=== PATIENT | male | born 1980 | race Caucasian/White ===

== ENCOUNTER 2023-10-20 12:28 | Inpatient (IN) | payer OTHER ==
[2023-10-20 14:32] VITALS: BMI 28.8
[2023-10-20] MEDS ORDERED: BENZOCAINE/MENTHOL (CHLORASEPTIC ) LOZENGE MM PRN (15:11)
[2023-10-20] MEDS ORDERED: BUPRENORPHINE HCL 150 MCG, BUPRENORPHINE HCL 75 MCG BC PRN (15:11)
[2023-10-20] MEDS ORDERED: NALOXONE HCL (KLOXXADO) 8 MG SPRAY NS PRN (15:11)
[2023-10-20] MEDS ORDERED: ONDANSETRON *ODT* 4 MG TABLET SL PRN (15:11)
[2023-10-20] MEDS ORDERED: LOPERAMIDE HCL 2 MG CAPSULE PO PRN (15:11)
[2023-10-20] MEDS ORDERED: ACETAMINOPHEN 325 MG TABLET (FP) PO PRN (15:11)
[2023-10-20] MEDS ORDERED: BENZONATATE 200 MG CAPSULE PO PRN (15:11)
[2023-10-20] MEDS ORDERED: DICYCLOMINE HCL 10 MG CAPSULE PO PRN (15:11)
[2023-10-20] MEDS ORDERED: MAG HYDROX/AL HYDROX/SIMETH 30 ML UNIT-DOSE CUP PO PRN (15:11)
[2023-10-20] MEDS ORDERED: IBUPROFEN 400 MG TABLET (FP) PO PRN (15:11)
[2023-10-20] MEDS ORDERED: POLYETHYLENE GLYCOL (HEALTHYLAX) 3350 17 GM PACKET PO PRN (15:11)
[2023-10-20] MEDS ORDERED: NALOXONE HCL 0.4 MG/ML VIAL IM PRN (15:11)
[2023-10-20] MEDS ORDERED: BISMUTH SUBSALICYLATE 524 MG/30 ML PO PRN (15:11)
[2023-10-20] MEDS ORDERED: MAGNESIUM HYDROX 2400MG/30ML ORAL SUSPENSION 30 ML CUP PO PRN (15:11)
[2023-10-20] MEDS ORDERED: IBUPROFEN 600 MG TABLET (FP) PO PRN (15:11)
[2023-10-20] MEDS ORDERED: PRENATAL VITAMINS W/ FOLIC ACID TABLET (FP) PO ONE (16:10)
[2023-10-20] MEDS ORDERED: NICOTINE 14 MG/24 HOURS TOPICAL PATCH TD ONE (16:10)
[2023-10-20] MEDS ORDERED: cloNIDine HCL 0.1 MG TABLET ONE (16:10)
[2023-10-20] MEDS ORDERED: methaDONE HCL 10 MG TABLET (FOR DETOX USE ONLY) ONE (16:10)
[2023-10-20] MEDS: DOXYCYCLINE HYCLATE 100 MG TABLET PO ONE (16:16)
[2023-10-20] MEDS: NICOTINE 14 MG/24 HOURS TOPICAL PATCH TD SCH (16:16)
[2023-10-20] MEDS: methaDONE HCL 10 MG TABLET (FOR DETOX USE ONLY) PO ONE (16:16)
[2023-10-20] MEDS: PRENATAL VITAMINS W/ FOLIC ACID TABLET (FP) PO SCH (16:16)
[2023-10-20] MEDS: AMOXICILLIN 500 MG CAPSULE (FP) PO ONE (16:17)
[2023-10-20] MEDS: DOXYCYCLINE HYCLATE 100 MG CAPSULE PO ONE (16:18)
[2023-10-20] MEDS ORDERED: cloNIDine HCL 0.1 MG TABLET PO SCH (18:00)
[2023-10-20] MEDS: BACITRACIN ZINC 15 GM TUBE TOPICAL OINTMENT TP SCH (18:52)
[2023-10-20] MEDS: BUPRENORPHINE HCL 150 MCG, BUPRENORPHINE HCL 75 MCG BC ONE (18:53)
[2023-10-20] MEDS: cloNIDine HCL 0.1 MG TABLET PO ONE (18:53)
[2023-10-20] MEDS ORDERED: cloNIDine HCL 0.1 MG TABLET PO PRN (19:11)
[2023-10-20] MEDS: MELATONIN 5 MG TABLETS PO SCH (22:31)
[2023-10-20] MEDS: THIAMINE HCL 100 MG TABLET (FP) PO SCH (22:31)
[2023-10-20] MEDS: hydrOXYzine PAMOATE 25 MG CAPSULE (FP) PO PRN (22:31)
[2023-10-20] MEDS: diazePAM 5 MG TABLET PO PRN (22:31)
[2023-10-20] MEDS ORDERED: P-EPHED 60MG/TRIPROLIDI 2.5MG TABLET PO PRN (22:36)
[2023-10-20] MEDS: BUPRENORPHINE/NALOXONE 0.5 MG/0.125 MG FILM SL ONE (22:36)
[2023-10-21] MEDS ORDERED: BUPRENORPHINE HCL 150 MCG, BUPRENORPHINE HCL 75 MCG BC PRN
[2023-10-21] MEDS: METHOCARBAMOL 500 MG TABLET PO PRN (05:44)
[2023-10-21] MEDS: guaiFENesin 600 MG TABLET.ER (FP) PO PRN (05:44)
[2023-10-21] MEDS ORDERED: BUPRENORPHINE HCL 150 MCG, BUPRENORPHINE HCL 75 MCG BC SCH (06:00)
[2023-10-21] MEDS: BUPRENORPHINE/NALOXONE 0.5 MG/0.125 MG FILM SL SCH (09:22)
[2023-10-21 12:12] LABS: HEMATOCRIT 39.3 % (35.4-49); HEMOGLOBIN 12.2 GM/dL (11.7-16.9); MCH 24.5 pg (25.7-33.7); MCHC 31.1 g/dl (32.0-35.9); MEAN CELL VOLUME 78.9 fl (80-96); MEAN PLT VOLUME 7.5 fl (7.5-11.1); PLATELET COUNT 357 10^3/uL (134-434); RBC 4.98 M/mm3 (4.00-5.60); RDW 18.9 % (11.9-15.9); WHITE BLOOD COUNT 10.8 K/mm3 (4.0-10.0)
[2023-10-21 12:16] LABS: CHLORIDE 105 mmol/L (98-107); POTASSIUM 4.7 mmol/L (3.5-5.1); SODIUM 138 mmol/L (136-145)
[2023-10-21 12:27] LABS: CALCIUM 9.4 mg/dL (8.5-10.1)
[2023-10-21 12:28] LABS: ALBUMIN 3.7 g/dl (3.4-5.0); ANION GAP 6 mmol/L (4-13); BLOOD UREA NITROGEN 8.9 mg/dL (7-18); CO2 28 mmol/L (21-32); GLUCOSE,RANDOM 94 mg/dL (74-106)
[2023-10-21 12:31] LABS: BILIRUBIN,TOTAL 0.7 mg/dL (0.2-1); TOT PROT 7.2 g/dl (6.4-8.2)
[2023-10-21 12:32] LABS: ALK PHOS 96 U/L (45-117); SGOT/AST 15 U/L (15-37)
[2023-10-21 12:33] LABS: SGPT/ALT 24 U/L (13-61)
[2023-10-21 12:34] LABS: CREATININE 0.9 mg/dL (0.55-1.3)
[2023-10-21] MEDS: cloNIDine HCL 0.1 MG TABLET PO PRN (14:00)
[2023-10-22] MEDS ORDERED: BUPRENORPHINE HCL 450 MCG FILM BC SCH (06:00)
[2023-10-22] MEDS: methaDONE HCL 10 MG TABLET (FOR DETOX USE ONLY) PO ONE (09:31)
[2023-10-22] MEDS ORDERED: BUPRENORPHINE/NALOXONE 2 MG/0.5 MG FILM PACKET SL SCH (10:00)
[2023-10-22] MEDS: amLODIPine BESYLATE 10 MG TABLET (FP) PO SCH (11:40)
[2023-10-22] MEDS: diazePAM 5 MG TABLET PO PRN (22:15)
[2023-10-23] MEDS ORDERED: BUPRENORPHINE/NALOXONE 4 MG/1 MG FILM PACKET SL SCH ×2 (06:00→10:00)
[2023-10-23] MEDS: LOSARTAN POTASSIUM 25 MG TABLET PO ONE (20:52)
[2023-10-24] MEDS ORDERED: BUPRENORPHINE/NALOXONE 8 MG/2 MG FILM PACKET SL ONE (06:00)
[2023-10-24] MEDS ORDERED: BUPRENORPHINE/NALOXONE 8 MG/2 MG FILM PACKET SL SCH (10:00)
[2023-10-24] MEDS: methaDONE HCL 10 MG TABLET (FOR DETOX USE ONLY) PO ONE (10:15)
[2023-10-25] MEDS ORDERED: BUPRENORPHINE/NALOXONE 8 MG/2 MG FILM PACKET SL ONE (10:00)
[2023-10-25] MEDS: LOSARTAN POTASSIUM 50 MG TABLET PO SCH (13:49)
[2023-10-25 16:49] VITALS: BP 143/90; PULSE 98; RESP 18; TEMP 98.9
== END 2023-10-25 17:19 | disposition other institution (70) | DRG 773 ==
LOC: YASAS 12:28 → Y3N 16:20
PROVIDERS: ADMIT Allergy & Immunology; ATTEND Surgery
PROC: HZ2ZZZZ Detoxification Services for Substance Abuse Treatment (ICD-10-PCS; principal; 2023-10-20)
DX: F11.23 Opioid dependence with withdrawal (principal); F17.290 Nicotine dependence, other tobacco product, uncomplicated; F19.24 Other psychoactive substance dependence with psychoactive substance-induced mood disorder; I10 Essential (primary) hypertension; L30.8 Other specified dermatitis; Z86.59 Personal history of other mental and behavioral disorders
CPT/HCPCS: 36415; 80053; 80305; 80307; 85027; 86780; 87635; 93005; 93010

== ENCOUNTER 2023-10-25 17:44 | Inpatient (IN) | payer OTHER ==
[2023-10-25] MEDS ORDERED: LOPERAMIDE HCL 2 MG CAPSULE PO PRN (20:28)
[2023-10-25] MEDS ORDERED: ACETAMINOPHEN 325 MG TABLET (FP) PO PRN (20:28)
[2023-10-25] MEDS ORDERED: NALOXONE (NYS OPIOID OVERDOSE PROGRAM) 4 MG/0.1 ML SPRAY NS PRN (20:28)
[2023-10-25] MEDS ORDERED: MAG HYDROX/AL HYDROX/SIMETH 30 ML UNIT-DOSE CUP PO PRN (20:28)
[2023-10-25] MEDS ORDERED: POLYETHYLENE GLYCOL (HEALTHYLAX) 3350 17 GM PACKET PO PRN (20:28)
[2023-10-25] MEDS ORDERED: NICOTINE POLACRILEX 2 MG GUM BUC PRN (20:28)
[2023-10-25] MEDS ORDERED: IBUPROFEN 400 MG TABLET (FP) PO PRN (20:28)
[2023-10-25] MEDS ORDERED: BENZONATATE 200 MG CAPSULE PO PRN (20:28)
[2023-10-25] MEDS ORDERED: IBUPROFEN 600 MG TABLET (FP) PO PRN (20:28)
[2023-10-25] MEDS ORDERED: guaiFENesin 600 MG TABLET.ER (FP) PO PRN (20:28)
[2023-10-25] MEDS ORDERED: BENZOCAINE/MENTHOL (CHLORASEPTIC ) LOZENGE MM PRN (20:28)
[2023-10-25] MEDS ORDERED: NALOXONE HCL 0.4 MG/ML VIAL IVPUSH PRN (20:28)
[2023-10-25] MEDS: MELATONIN 5 MG TABLETS PO SCH (21:15)
[2023-10-25] MEDS: THIAMINE HCL 100 MG TABLET (FP) PO SCH (21:15)
[2023-10-26 06:41] VITALS: RESP 18
[2023-10-26] MEDS: amLODIPine BESYLATE 10 MG TABLET (FP) PO SCH (09:57)
[2023-10-26] MEDS: PRENATAL VITAMINS W/ FOLIC ACID TABLET (FP) PO SCH (09:57)
[2023-10-26] MEDS: BACITRACIN 0.9 GM PACKET TP SCH (09:57)
[2023-10-26] MEDS: LOSARTAN POTASSIUM 50 MG TABLET PO SCH (09:57)
[2023-10-28] MEDS: MAGNESIUM HYDROX 2400MG/30ML ORAL SUSPENSION 30 ML CUP PO PRN (11:14)
[2023-10-29] MEDS: METHOCARBAMOL 500 MG TABLET PO PRN (06:40)
[2023-11-01 07:16] VITALS: TEMP 97.8
[2023-11-01 09:10] VITALS: BP 144/87; PULSE 115
== END 2023-11-01 09:19 | disposition home or self-care (01) | DRG 772 ==
LOC: YASAS 17:44 → Y3W 17:45
PROVIDERS: ADMIT Allergy & Immunology; ATTEND Psychiatry & Neurology Pain Medicine
PROC: HZ42ZZZ Group Counseling for Substance Abuse Treatment, Cognitive-Behavioral (ICD-10-PCS; principal; 2023-10-25)
DX: F11.20 Opioid dependence, uncomplicated (principal); F17.210 Nicotine dependence, cigarettes, uncomplicated; L27.1 Localized skin eruption due to drugs and medicaments taken internally